=== PATIENT | female | born 1985 | race Caucasian/White ===

== ENCOUNTER 2016-12-24 16:45 | Emergency (ER) | payer BC ==
[~2016-12-24] VITALS: Wt 72.0 kg
[2016-12-24] MEDS ORDERED: PEN500 PO (17:14)
[2016-12-24] MEDS ORDERED: BENZ100C70 PO (17:15)
[2016-12-24] MEDS ORDERED: PRED20TA PO (17:15)
--- NOTE | 2016-12-24 17:20 | ERD ---
ER Documentation Chief Complaint Date/Time DATE: 12/24/16 TIME: 17:18 Chief Complaint SORE THROAT FOR THE PAST FEW HOURS. WITH NO STRIDOR. NO DISTRESS. HPI This is a 31-year-old female presents to the ER with a sore throat that started happening this morning. Patient denies any difficulty in breathing. She denies any difficulty in swallowing, however it is painful when she swallows. Patient states that she felt feverish yesterday, however did not take her temperature. She denies a cough. Patient denies any headaches, nausea, vomiting. ROS 12 point review of systems was done, all negative except per HPI. Medications Home Meds Active Scripts Benzonatate* (Tessalon Perle*) 100 Mg Capsule, 100 MG PO Q8H Y for COUGH for 3 Days, CAP Prov:DOT MURPHY C 12/24/16 Prednisone* (Prednisone*) 20 Mg Tab, 60 MG PO DAILY for 4 Days, TAB Prov:DOT MURPHY C 12/24/16 Penicillin V Potassium* (Penicillin V K*) 500 Mg Tab, 500 MG PO BID for 10 Days , TAB Prov:DOT MURPHY C 12/24/16 Physical Exam Vitals Vital Signs Date Time Temp Pulse Resp B/P Pulse Ox O2 Delivery O2 Flow Rate FiO2 12/24/16 17:05 98.8 91 21 129/74 98 Physical Exam GENERAL: The patient is well-developed, well-nourished, in no acute distress. NECK: Cervical spine is non tender with no step off. Supple, no nuchal rigidity HEENT: Atraumatic. Pupils equal, round and reactive to light. Extraocular muscles are grossly intact. Conjunctivae pink, no discharge. Bilateral tympanic membranes are clear with no evidence of erythema, effusion or dulling of the light reflex. The lateral tonsillar erythema with petechiae on refilled mouth. tonsils no uvular deviation. RESPIRATORY: Clear to auscultation bilaterally. There are no rales, wheezes or rhonchi. HEART: Regular rate and rhythm. No murmurs, clicks, rubs or gallops. NEUROLOGIC: Alert and oriented. SKIN: There is no rash. The skin is warm and dry. Procedures/MDM This is a 31-year-old female presents to the ER with a sore throat. At this time patient may have strep throat. She is not having exudates, however she did have petechiae of the roof of her mouth. Patient's tonsils were were swollen. She'll be treated for potential bacterial infection with penicillin and prednisone for swelling. This time suspicion for retropharyngeal abscess or peritonsillar abscess is low. Patient did not have any stridor or difficulty in breathing. She is afebrile and well-appearing. Patient needs to follow-up with her primary care doctor within 1-2 days or return to ER sooner symptoms worsen. My medical decision making was shared with the patient she understands and agrees with plan. Departure Diagnosis: Primary Impression: Pharyngitis Condition: Stable Patient Instructions: Strep Throat Additional Instructions: Call your primary care doctor TOMORROW for an appointment during the next 1-2 days.See the doctor sooner or return here if your condition worsens before your appointment time. DOT MURPHY Dec 24, 2016 17:20
== END 2016-12-24 17:16 | disposition home or self-care (01) ==
LOC: E/R 16:45
DX: J02.9 Acute pharyngitis, unspecified (principal)
CPT/HCPCS: 99284

== ENCOUNTER 2017-07-14 09:09 | Emergency (ER) | payer BC ==
[~2017-07-14] VITALS: Wt 97.0 kg
[~2017-07-14 09:09] MED LIST: BENZ100C70 PO; PENI500T PO; PRED20TA PO
[2017-07-14] MEDS ORDERED: LIDOCAINE 1% (MDV) 20 ML INJ SC ONE (11:30)
[2017-07-14] MEDS ORDERED: ACET500C5 PO (12:05)
--- NOTE | 2017-07-14 12:08 | ERD ---
ER Documentation Chief Complaint Date/Time DATE: 07/14/17 TIME: 12:06 Chief Complaint "mass on lip" HPI 11-year-old female complains of a lower lip lesion which is painful for the last 2 days. She awoke with it. She may have better her lower lip. History significant for a small skin tag is been there for a few years from previous trauma. She denies any active bleeding, fevers, additional symptoms. ROS All systems reviewed and are negative except as per history of present illness. Medications Home Meds Active Scripts Acetaminophen* (Tylophen*) 500 Mg Capsule, 1 CAP PO Q6H Y for PAIN AND OR ELEVATED TEMP, #15 CAP Prov:TRINY VILLAVICENCIO MD 07/14/17 Benzonatate* (Tessalon Perle*) 100 Mg Capsule, 100 MG PO Q8H Y for COUGH for 3 Days, CAP Prov:JEFFREY,DOT C 12/24/16 Prednisone* (Prednisone*) 20 Mg Tab, 60 MG PO DAILY for 4 Days, TAB Prov:JEFFREY,DOT C 12/24/16 Penicillin V Potassium* (Penicillin V K*) 500 Mg Tab, 500 MG PO BID for 10 Days , TAB Prov:JEFFREY,DOT C 12/24/16 Allergies Allergies: Coded Allergies: No Known Allergy (Unverified , 07/14/17) Physical Exam Vitals Vital Signs Date Time Temp Pulse Resp B/P Pulse Ox O2 Delivery O2 Flow Rate FiO2 07/14/17 09:11 98.0 94 20 153/72 95 Physical Exam Const: [], [id number]. Head: Atraumatic Eyes: Normal Conjunctiva ENT: Normal External Ears, Nose and Mouth. Lower lip 0.5 cm pedunculated hemorrhagic lesion. No active bleeding, no erythema. Neck: Full range of motion..~ No meningismus. Resp: Clear to auscultation bilaterally Cardio: Regular rate and rhythm, no murmurs Abd: Soft, non tender, non distended. Normal bowel sounds Skin: No petechiae or rashes Back: No midline or flank tenderness Ext: No cyanosis, or edema Neur: Awake and alert Psych: Normal Mood and Affect Results 24 hrs Current Medications Medications (Trade) Dose Ordered Sig/Eduin Route PRN Reason Start Time Stop Time Status Last Admin Dose Admin Lidocaine (Xylocaine 1% (Mdv) 20 ml) 20 ml ONCE ONCE SC 07/14/17 11:30 07/14/17 11:31 DC Procedures/MDM Patient presents with a lower lip lesion which has a clinical appearance of possibly a hemorrhagic mucocele or pyogenic granuloma. Patient requests removal as she keeps biting it and it is causing pain. She is a non-smoker denies tobacco use. Procedure note-lower lip was anesthetized using 1 cc of lidocaine. A #15 scalpel was used to excise the lesion. One [id number] 6-0 Vicryl suture was used to reapproximate the residual wound and provide hemostasis. Patient tolerated procedure well. The lesion was sent for biopsy. Discharged home with instructions for 2 day wound check in 7 days suture removal. She should otherwise return sooner for fevers, redness, new or worsening symptoms. Departure Diagnosis: Primary Impression: Pyogenic granuloma of lip Condition: Stable Patient Instructions: Pyogenic Granuloma, Tumor, Uncertain Cause Additional Instructions: Likely pyogenic granuloma but biopsy will return approximately 1 week. Recommend wound check in 2 days for redness, swelling and suture removal in 1 week. TRINY VILLAVICENCIO MD Jul 14, 2017 12:08
[2017-07-14 12:34] VITALS: BP 128/69; PULSE 77; RESP 18
== END 2017-07-14 12:34 | disposition home or self-care (01) ==
LOC: FTE 09:09
DX: L98.0 Pyogenic granuloma (principal)
CPT/HCPCS: 11440; 88305; Z7502; Z7610